=== PATIENT | male | born 1980 | race Caucasian/White ===

== ENCOUNTER 2016-05-31 10:02 | Emergency (ER) | payer MEDICARE, OTHER ==
[2016-05-31 10:04] VITALS: BP 118/69; PULSE 62; RESP 14; TEMP 98; O2SAT 98
--- NOTE | 2016-05-31 10:28 | PD ---
HPI Chief Complaint: Oral / Dental Pain or Problem Time Seen by Provider: 10:20 Travel History International Travel<30 days: No Contact w/Intl Traveler<30days: No Traveled to known affect area: No History of Present Illness HPI 35-year-old male came to the emergency room because he has wires in his jaw after jaw fracture that was put in few weeks ago at [facility]. Patient says it was supposed to come out today but he is homeless and has no means or money to go back to [place] to the oral surgeon to get the wire taken out. He is looking for some help here. No other problems. Vitals were stable. [facility], [facility] Past Medical History Narrative Medical List of his past medical history is reviewed from the nursing note. Social History Tobacco Use: Yes Allergies-Medications (Allergen,Severity, Reaction): Coded Allergies: No Known Allergies (Unverified , 06/01/16) Comments No known drug allergies. Reported Meds & Prescriptions Reported Meds & Active Scripts Active Zofran Odt (Ondansetron Odt) 4 Mg Tab 4 Mg SL Q6HR PRN Narrative Medication Not on any medications. Review of Systems Except as stated in HPI: all other systems reviewed are Neg Physical Exam Narrative GENERAL: Awake, alert, no obvious distress SKIN: Warm and dry. HEAD: Atraumatic. Normocephalic. EYES: Pupils equal and round. No scleral icterus. No injection or drainage. ENT: No nasal bleeding or discharge. Mucous membranes pink and moist. Jaw wired NECK: Trachea midline. No JVD. CARDIOVASCULAR: Regular rate and rhythm. No murmur appreciated. RESPIRATORY: No accessory muscle use. Clear to auscultation. Breath sounds equal bilaterally. GASTROINTESTINAL: Abdomen soft, non-tender, nondistended. Hepatic and splenic margins not palpable. MUSCULOSKELETAL: No obvious deformities. No clubbing. No cyanosis. No edema. NEUROLOGICAL: Awake and alert. No obvious cranial nerve deficits. Motor grossly within normal limits. Normal speech. PSYCHIATRIC: Appropriate mood and affect; insight and judgment normal. Data Data Last Documented VS Vital Signs Date Time Temp Pulse Resp B/P Pulse Ox O2 Delivery O2 Flow Rate FiO2 05/31/16 10:04 98.0 62 14 118/69 98 MDM Medical Decision Making Medical Screen Exam Complete: Yes Emergency Medical Condition: Yes Medical Record Reviewed: Yes Differential Diagnosis Status post mandibular fracture, generalized. Narrative Course 10:37 AM I discussed the case with Dr. Jose who is on-call for oral surgery. He would see the patient in his office today at 1:30 PM. I've given the instruction to the patient and he is getting a map drawn to the office address. He will be discharged home. He has been given instructions to stay nothing by mouth to the procedure was done. Procedures EKG Prior to Arrival: No Diagnosis Primary Impression: History of mandibular surgery Additional Impression: jaw wired Referrals: Irving Jose DDS Additional Instructions: Please follow-up with Dr. Jose's office was address has been given to you at 1:30 PM today. Keep the appointment. He was expecting her in his office at 1:30 sharp. He will do the procedure and take the wire out. Med/Other Pt SpecificInfo: No Change to Meds Disposition: 01 DISCHARGE HOME Condition: Stable Terence Varma MD May 31, 2016 10:28
[2016-06-01] MEDS ORDERED: ZOFR4TAB3 SL (06:15)
== END 2016-05-31 11:29 | disposition home or self-care (01) ==
LOC: NEPE 10:02
DX: Z98.890 Other specified postprocedural states (principal); Z96.698 Presence of other orthopedic joint implants; Z72.0 Tobacco use; Z59.0 Homelessness
CPT/HCPCS: 99283

== ENCOUNTER 2016-06-01 04:48 | Emergency (ER) | payer MEDICARE, OTHER ==
[~2016-06-01] VITALS: Ht 172.7 cm; Wt 75.0 kg
[2016-06-01 04:49] VITALS: BP 135/72; PULSE 87; RESP 16; TEMP 97.8; O2SAT 95
[2016-06-01] MEDS ORDERED: SODIUM CHLOR 0.9% 1000 ML INJ 1,000 ML IV ONE (05:00)
[2016-06-01] MEDS ORDERED: ONDANSETRON HCL 4 MG/2 ML VIAL IV PUSH ONE (05:00)
--- NOTE | 2016-06-01 05:04 | PD ---
HPI Chief Complaint: Medical Clearance Time Seen by Provider: 04:55 Travel History International Travel<30 days: No Contact w/Intl Traveler<30days: No Traveled to known affect area: No History of Present Illness HPI The patient is a 35-year-old male who presents emergency department for nausea. The patient states he had a wire removed from his jaw yesterday, ate chicken tenders and fries yesterday. The patient then had alcohol to drink last night and now presents with nausea. The patient thinks he wiped he nauseated after drinking alcohol and eating, states he is on a liquid diet secondary to the general surgery, prior to yesterday. He denies any abdominal pain, vomiting, or diarrhea. He denies any history of abdominal surgeries. Symptoms are mild to moderate, possibly exacerbated after eating food, and there are no current alleviating factors. [facility] Past Medical History Medical History: Denies Significant Hx Diminished Hearing: No Immunizations Current: Yes Past Surgical History Oral Surgery: Yes (fx jaw) Social History Alcohol Use: Yes Tobacco Use: Yes (/2 ppd) Substance Use: No Allergies-Medications (Allergen,Severity, Reaction): Coded Allergies: No Known Allergies (Unverified , 06/01/16) Reported Meds & Prescriptions Reported Meds & Active Scripts Active No Active Prescriptions or Reported Medications Review of Systems Except as stated in HPI: all other systems reviewed are Neg General / Constitutional: No: Fever Cardiovascular: No: Chest Pain or Discomfort Respiratory: No: Shortness of Breath Gastrointestinal: Positive: Nausea, No: Vomiting, Diarrhea, Abdominal Pain Musculoskeletal: No: Weakness Physical Exam Narrative GENERAL: Awake, alert, pleasant 35 year male who appears his stated age and is in no acute respiratory distress. SKIN: Warm and dry. HEAD: Atraumatic. Normocephalic. EYES: The left pupil is 4 mm in the right pupils 2 mm, patient has a history of anisocoria. Both are reactive to light. ENT: No nasal bleeding or discharge. Mucous membranes pink and moist. Breath smells of alcohol. NECK: Trachea midline. No JVD. CARDIOVASCULAR: Regular rate and rhythm. No murmur appreciated. RESPIRATORY: No accessory muscle use. Clear to auscultation. Breath sounds equal bilaterally. GASTROINTESTINAL: Abdomen soft, non-tender, nondistended. No rebound tenderness. MUSCULOSKELETAL: No obvious deformities. No clubbing. No cyanosis. No edema. NEUROLOGICAL: Awake and alert. No obvious cranial nerve deficits. Motor grossly within normal limits. Normal speech. PSYCHIATRIC: Appropriate mood and affect; insight and judgment normal. Data Data Last Documented VS Vital Signs Date Time Temp Pulse Resp B/P Pulse Ox O2 Delivery O2 Flow Rate FiO2 06/01/16 04:49 97.8 87 16 135/72 95 Room Air Orders Complete Blood Count With Diff (06/01/16 04:58) Comprehensive Metabolic Panel (06/01/16 04:58) Lipase (06/01/16 04:58) Ondansetron Inj (Zofran Inj) (06/01/16 05:00) Sodium Chlor 0.9% 1000 Ml Inj (Ns 1000 M (06/01/16 05:00) Alcohol (Ethanol) (06/01/16 04:58) Labs Laboratory Tests Test 06/01/16 05:04 White Blood Count 7.5 TH/MM3 Red Blood Count 5.22 MIL/MM3 Hemoglobin 16.2 GM/DL Hematocrit 47.7 % Mean Corpuscular Volume 91.5 FL Mean Corpuscular Hemoglobin 31.1 PG Mean Corpuscular Hemoglobin 34.0 % Concent Red Cell Distribution Width 15.0 % Platelet Count 299 TH/MM3 Mean Platelet Volume 7.2 FL Neutrophils (%) (Auto) 54.5 % Lymphocytes (%) (Auto) 30.5 % Monocytes (%) (Auto) 11.5 % Eosinophils (%) (Auto) 3.0 % Basophils (%) (Auto) 0.5 % Neutrophils # (Auto) 4.1 TH/MM3 Lymphocytes # (Auto) 2.3 TH/MM3 Monocytes # (Auto) 0.9 TH/MM3 Eosinophils # (Auto) 0.2 TH/MM3 Basophils # (Auto) 0.0 TH/MM3 CBC Comment DIFF FINAL Differential Comment Sodium Level 142 MEQ/L Potassium Level 4.2 MEQ/L Chloride Level 106 MEQ/L Carbon Dioxide Level 30.2 MEQ/L Anion Gap 6 MEQ/L Blood Urea Nitrogen 15 MG/DL Creatinine 0.80 MG/DL Estimat Glomerular Filtration 109 ML/MIN Rate Random Glucose 88 MG/DL Calcium Level 8.8 MG/DL Total Bilirubin 0.4 MG/DL Aspartate Amino Transf 65 U/L (AST/SGOT) Alanine Aminotransferase 125 U/L (ALT/SGPT) Alkaline Phosphatase 81 U/L Total Protein 7.6 GM/DL Albumin 3.9 GM/DL Lipase 323 U/L Ethyl Alcohol Level 66 MG/DL [facility] Medical Decision Making Medical Screen Exam Complete: Yes Emergency Medical Condition: Yes Medical Record Reviewed: Yes Interpretation(s) Laboratory Tests Test 06/01/16 05:04 White Blood Count 7.5 TH/MM3 Red Blood Count 5.22 MIL/MM3 Hemoglobin 16.2 GM/DL Hematocrit 47.7 % Mean Corpuscular Volume 91.5 FL Mean Corpuscular Hemoglobin 31.1 PG Mean Corpuscular Hemoglobin 34.0 % Concent Red Cell Distribution Width 15.0 % Platelet Count 299 TH/MM3 Mean Platelet Volume 7.2 FL Neutrophils (%) (Auto) 54.5 % Lymphocytes (%) (Auto) 30.5 % Monocytes (%) (Auto) 11.5 % Eosinophils (%) (Auto) 3.0 % Basophils (%) (Auto) 0.5 % Neutrophils # (Auto) 4.1 TH/MM3 Lymphocytes # (Auto) 2.3 TH/MM3 Monocytes # (Auto) 0.9 TH/MM3 Eosinophils # (Auto) 0.2 TH/MM3 Basophils # (Auto) 0.0 TH/MM3 CBC Comment DIFF FINAL Differential Comment Sodium Level 142 MEQ/L Potassium Level 4.2 MEQ/L Chloride Level 106 MEQ/L Carbon Dioxide Level 30.2 MEQ/L Anion Gap 6 MEQ/L Blood Urea Nitrogen 15 MG/DL Creatinine 0.80 MG/DL Estimat Glomerular Filtration 109 ML/MIN Rate Random Glucose 88 MG/DL Calcium Level 8.8 MG/DL Total Bilirubin 0.4 MG/DL Aspartate Amino Transf 65 U/L (AST/SGOT) Alanine Aminotransferase 125 U/L (ALT/SGPT) Alkaline Phosphatase 81 U/L Total Protein 7.6 GM/DL Albumin 3.9 GM/DL Lipase 323 U/L Ethyl Alcohol Level 66 MG/DL Differential Diagnosis Differential diagnosis includes gastritis, pancreatitis, biliary colic, cholecystitis, enteritis, GERD. Narrative Course IV was established, labs are drawn and sent, and the patient was placed on cardiac telemetry monitoring and continuous pulse oximetry monitoring. The patient was administered Zofran and normal saline bolus. The patient's labs are unremarkable. The patient is reevaluated at 613 8 AM, patient was sleeping comfortably. Patient will be discharged home on Zofran. Diagnosis Primary Impression: Gastritis Qualified Code: K29.00 - Acute gastritis, presence of bleeding unspecified, unspecified gastritis type Patient Instructions: General Instructions Additional Instructions: Zofran as directed. Follow-up with her primary physician. Decrease alcohol use. Return if symptoms worsen or progress. Med/Other Pt SpecificInfo: Prescription(s) given Scripts Ondansetron Odt (Zofran Odt)4 Mg Tab4 Mg SL Q6HR PRN (Nausea/Vomiting) #7 TAB Ref 0 Prov:Ze Ruffin MD 06/01/16 Disposition: 01 DISCHARGE HOME Condition: Stable Ze Ruffin MD Jun 01, 2016 05:04
[2016-06-01 05:40] LABS: AUTOMATED NEUTROPHIL # 4.1 TH/MM3 (1.8-7.7); BASOPHIL % 0.5 % (0.0-2.0); EOSINOPHIL # 0.2 TH/MM3 (0-0.4); HEMATOCRIT 47.7 % (39.0-51.0); HEMO FLAGS DIFF FINAL; LYMPH % 30.5 % (9.0-44.0); LYMPHOCYTE # 2.3 TH/MM3 (1.0-4.8); MEAN CELL VOLUME 91.5 FL (80.0-100.0); MEAN CORPUSCULAR HEMOGLOBIN 31.1 PG (27.0-34.0); MONO % 11.5 % (0.0-8.0); NEUT % 54.5 % (16.0-70.0); PLATELET COUNT 299 TH/MM3 (150-450); RED BLOOD COUNT 5.22 MIL/MM3 (4.50-5.90); WHITE BLOOD COUNT 7.5 TH/MM3 (4.0-11.0)
[2016-06-01 06:03] LABS: ALKALINE PHOSPHATASE 81 U/L (45-117); TOTAL BILIRUBIN ADULT 0.4 MG/DL (0.2-1.0)
[2016-06-01 06:08] LABS: ALT (GPT) 125 U/L (12-78); ANION GAP 6 MEQ/L (5-15); AST (GOT) 65 U/L (15-37); BICARBONATE 30.2 MEQ/L (21.0-32.0); BLOOD UREA NITROGEN 15 MG/DL (7-18); CHLORIDE 106 MEQ/L (98-107); GLOMERULAR FILTRATION RATE 109 ML/MIN (>89); POTASSIUM 4.2 MEQ/L (3.5-5.1); SODIUM (NA) 142 MEQ/L (136-145)
[2016-06-01 06:15] VITALS: BP 112/82; PULSE 80; RESP 16; O2SAT 97
[2016-06-01] MEDS ORDERED: ZOFR4TAB3 SL (06:15)
== END 2016-06-01 06:33 | disposition home or self-care (01) ==
LOC: NEPC 04:48
DX: K29.70 Gastritis, unspecified, without bleeding (principal); F17.210 Nicotine dependence, cigarettes, uncomplicated
CPT/HCPCS: 80053; 80320; 83690; 85025; 96361; 96374; 99283; J2405; J7030

== ENCOUNTER 2016-06-01 07:21 | Emergency (ER) | payer MEDICARE, OTHER ==
[~2016-06-01] VITALS: Ht 167.6 cm; Wt 75.0 kg
[~2016-06-01 07:21] MED LIST: ZOFR4TAB3 SL
[2016-06-01 07:23] VITALS: BP 135/64; PULSE 74; RESP 15; TEMP 98; O2SAT 99
--- NOTE | 2016-06-01 10:20 | PD ---
HPI Chief Complaint: Psychiatric Symptoms Time Seen by Provider: 10:16 Travel History International Travel<30 days: No Contact w/Intl Traveler<30days: No Traveled to known affect area: No History of Present Illness HPI 35-year-old male presents to the emergency Department voluntarily for psychiatric evaluation. Patient was just discharged at 5:00 this morning for gastritis. He states after he was discharged, use her with suicidal thoughts. He states he has thoughts of cutting his wrists. He denies any harm to himself. Patient states he just moved from [place] 2 days ago. He states he is living on the streets. He states that he tries not to drink alcohol every day, but does drink often. He admits to marijuana use, but denies any IV drug use. He states he was given a prescription for Lexapro in the past, but never filled it. Patient denies any medical complaints at this time. PFSH Past Medical History Diminished Hearing: No Immunizations Current: Yes Past Surgical History Oral Surgery: Yes (fx jaw) Social History Alcohol Use: Yes Tobacco Use: Yes (1/2 ppd) Substance Use: No Allergies-Medications (Allergen,Severity, Reaction): Coded Allergies: No Known Allergies (Unverified , 06/01/16) Reported Meds & Prescriptions Reported Meds & Active Scripts Active Zofran Odt (Ondansetron Odt) 4 Mg Tab 4 Mg SL Q6HR PRN Review of Systems Except as stated in HPI: all other systems reviewed are Neg Physical Exam Narrative GENERAL: Well-developed well-nourished male patient, ambulatory. Afebrile. SKIN: Warm and dry. HEAD: Normocephalic. Atraumatic. EYES: No scleral icterus. No injection or drainage. NECK: Supple, trachea midline. No JVD or lymphadenopathy. CARDIOVASCULAR: Regular rate and rhythm without murmurs, gallops, or rubs. RESPIRATORY: Breath sounds equal bilaterally. No accessory muscle use. Lungs sounds clear to auscultation. GASTROINTESTINAL: Abdomen soft, non-tender, nondistended. MUSCULOSKELETAL: No cyanosis, or edema. PSYCHIATRIC: No delusional thought processes. No hallucinations. Data Data Last Documented VS Vital Signs Date Time Temp Pulse Resp B/P Pulse Ox O2 Delivery O2 Flow Rate FiO2 06/01/16 07:23 98.0 74 15 135/64 99 Orders Diet Regular Basic (1/20/17 Breakfast) Diet Regular Basic (06/01/16 Lunch) Drug Screen, Random Urine (06/01/16 09:46) Psych Screen (06/01/16 10:08) MDM Medical Decision Making Medical Screen Exam Complete: Yes Emergency Medical Condition: Yes Medical Record Reviewed: Yes Differential Diagnosis Depression versus anxiety versus bipolar disorder versus schizophrenia versus psychosis versus substance abuse Narrative Course 35 year old male presents to the emergency Department voluntarily for psychiatric evaluation. He denies any medical complaints at this time. I reviewed the labs that were done at 5:00 this morning. CBC was unremarkable. CMP showed elevated liver enzymes of AST of 65, ALT 125. Alcohol level was 66. Urine drug screen is ordered and pending. Patient is medical cleared for psychiatric screening and disposition. Mental health screening discussed with the patient. Psychiatric screen ordered. Diagnosis Primary Impression: Depression Qualified Code: F32.9 - Depression, unspecified depression type Additional Instructions: Patient is medically cleared for psychiatric screening and disposition. Condition: Stable Gayla Kessler Jun 01, 2016 10:20
[2016-06-01 11:23] LABS: AMPHETAMINE, URINE NEG (NEG); BARBITURATES, URINE NEG (NEG); COCAINE, URINE NEG (NEG)
[2016-06-01 18:10] VITALS: BP 124/68; PULSE 61; RESP 18
[2016-06-01 23:28] VITALS: BP 113/62; PULSE 53; RESP 18; O2SAT 97
[2016-06-02 02:26] VITALS: BP 128/77; PULSE 53; RESP 18; TEMP 97.3; O2SAT 97
[2016-06-02 06:25] VITALS: BP 123/60; PULSE 57; RESP 18; TEMP 96; O2SAT 96
[2016-06-02 10:14] VITALS: BP 123/60; PULSE 57; RESP 18; O2SAT 96
--- NOTE | 2016-06-02 10:18 | PD ---
History of Present Illness Chief Complaint: Psychiatric Symptoms Time Seen by Provider: 09:45 Travel History International Travel<30 Days: No Contact w/Intl Traveler<30days: No Known affected area: No Legal Status Legal Status: Voluntary History of Present Illness: History of Present Illness 35-year-old male with a self reported history of bipolar disorder, depression, anxiety, ADHD who presents to the emergency Department voluntarily for psychiatric evaluation. As per the EMR patient was just discharged at 5:00 this morning for gastritis and at that time he presented no psychiatric complaints. He states after he was discharged he began to experience suicidal thoughts. He states he has thoughts of cutting his wrists but he has not made any suicidal gesture or any attempts. Patient was monitored in J pod and he presented no behavioral concerns and no suicidality. Slept well. As per guide tour he denied any previous psychiatric history and denied any previous psychiatric hospitalizations. He was vague regarding his symptoms. As per EMR he has not had previous contact with [facility] psychiatry. Current toxicology is positive for cannabinoids. Patient is asleep. Awakens easily. Speech is clear and logical, goal directed. Does not appear internally preoccupied and does not report any hallucinations, delusions or paranoia. He does not report any symptoms of depression or anxiety .He states " I just want to get my life back on track. I have been living on the streets for one and half year and I just want to do the right thing". He goes on to ask what services are available " on the other side of the hospital, the psych unit. " like a aids social worker and groups". He is unable to provide information regarding previous medications . " I don't know what meds" . I was prescribed lexapro 2 months ago in [place]. He is unable to tell me who prescribed it to him. When asked what hospital he has been he states " I don't know what hospitals". He is also unable to say when he last took psychiatric medications , if any, in a consistent manner. He then states " it wasn't 2 mos ago it was 2 days ago I was in [place]". Patient also states that he has had had thoughts in the past several weeks of cutting his wrists but has not done so . Mood does not appear to be significantly depressed. PFSH Past Medical History Diminished Hearing: No Immunizations Current: Yes Past Surgical History Oral Surgery: Yes (fx jaw) Psychiatric History Psychiatric History Hx Psychiatric Treatment: Denied History of Inpatient Treatment: No Guns or firearms in home: No Social History completed 11 grade. states is on disability x 12 years. Homeless. From [place]. Hx Alcohol Use: Yes Hx Tobacco Use: Yes (05/14 ppd) Hx Substance Use: Yes Substance Use Type: Alcohol Other Substances Used: VAGUE STATED I DO THINGS AT TIMES Hx of Substance Use Treatment: No Family Psychiatric History None reported Allergies-Medications (Allergen,Severity, Reaction): Coded Allergies: No Known Allergies (Unverified , 06/01/16) Reported Meds & Prescriptions Reported Meds & Active Scripts Active Zofran Odt (Ondansetron Odt) 4 Mg Tab 4 Mg SL Q6HR PRN Review of Systems Constitutional: DENIES: Diaphoretic episodes, Fatigue, Fever, Weight gain, Weight loss, Chills, Dizziness, Change in appetite, Night Sweats Endocrine: DENIES: Heat/cold intolerance, Polydipsia, Polyuria, Polyphagia Eyes: DENIES: Blurred vision, Diplopia, Eye inflammation, Eye pain, Vision loss , Photosensitivity, Double Vision Respiratory: DENIES: Apneas, Cough, Snoring, Wheezing, Hemoptysis, Sputum production, Shortness of breath Cardiovascular: DENIES: Chest pain, Palpitations, Syncope, Dyspnea on Exertion , PND, Lower Extremity Edema, Orthopnea, Claudication Gastrointestinal: DENIES: Abdominal pain, Black stools, Bloody stools, Constipation, Diarrhea, Nausea, Vomiting, Difficulty Swallowing, Anorexia Genitourinary: DENIES: Sexual dysfunction, Urinary frequency, Urinary incontinence, Urgency, Hematuria, Dysuria, Nocturia, Penile Discharge, Testicular Pain, Testicular Swelling Musculoskeletal: DENIES: Joint pain, Muscle aches, Stiffness, Joint Swelling, Back pain, Neck pain Integumentary: DENIES: Abnormal pigmentation, Nail changes, Pruritus, Rash Immunologic/allergic: DENIES: Eczema, Urticaria Exam Alert: Yes [place]: Person (ox4) Mood: Calm Affect: Euthymic Speech: Clear, Logical Eye Contact: Indirect Memory Intact: Comment (vague regarding hx. Appears to be putting forth little effort) Delusions: No Suicidal: Intent (Negative), Ideation (Negative.) Homicidal: Ideation (neagtive) Insight/Judgement Poor. Poor. MDM Medical Decision Making Medical Record Reviewed: Yes Assessment/Plan 35 year old male who presents on a voluntary basis after he was evaluated and discharged for gastric complaints. He then returned to the hospital reporting suicidal ideation. The patient has been vague and has presented conflicting information regarding past treatment or medications. He was monitored here in J pod with no behavioral concerns and no suicidality until a discussion ensues regarding discharge from Ed. It is highly suspected that he is malingering his symptoms in order to obtain intermediate as well as I suspect an axis 2 dx. At this time the patient is not determined to be an imminent risk to self due to psychiatric issues or concerns. There is always the possibility that he may in fact " up the ante" in order to obtain intermediate. At this time he is not deemed a risk to self based on observations and clinical interview. He is provided with information regarding [facility] for follow up and other social media project manager. Orders Diet Regular Basic (06/01/16 Dinner) Diet Regular Basic (06/02/16 Breakfast) Results Vital Signs Date Time Temp Pulse Resp B/P Pulse Ox O2 Delivery O2 Flow Rate FiO2 06/02/16 10:14 57 18 123/60 96 Room Air 06/02/16 06:25 96.0 57 18 123/60 96 Room Air 06/02/16 06:16 52 18 06/02/16 02:26 97.3 53 18 128/77 97 Room Air 06/01/16 23:28 53 18 113/62 97 06/01/16 18:10 61 18 124/68 Room Air Diagnosis Primary Impression: Malingering Additional Impression: Depression Psychiatrically Cleared: Yes Additional Instructions: Patient is medically cleared for psychiatric screening and disposition. Disposition: 01 DISCHARGE HOME Condition: Stable Problem Qualifiers Additional Impression: Depression Qualified Code: F32.9 - Depression, unspecified depression type Lety Hyde Jun 02, 2016 10:18
== END 2016-06-02 10:58 | disposition home or self-care (01) ==
LOC: NEPJ 07:21
DX: Z76.5 Malingerer [conscious simulation] (principal); F32.9 Major depressive disorder, single episode, unspecified; F17.210 Nicotine dependence, cigarettes, uncomplicated
CPT/HCPCS: 80307; 99284

== ENCOUNTER 2016-06-02 19:09 | Emergency (ER) | payer MEDICARE, OTHER ==
[~2016-06-02] VITALS: Ht 167.6 cm; Wt 73.0 kg
[2016-06-02 19:11] VITALS: BP 109/55; PULSE 112; RESP 16; TEMP 98.8; O2SAT 96
== END 2016-06-02 19:45 | disposition left against medical advice (07) ==
LOC: NED 19:09
DX: R68.89 Other general symptoms and signs (principal)
CPT/HCPCS: 99281

== ENCOUNTER 2016-06-04 18:34 | Inpatient (IN) | payer MEDICARE, OTHER ==
[2016-06-04 19:45] VITALS: BP 131/71; PULSE 63; RESP 17; TEMP 97; O2SAT 91
[2016-06-04] MEDS ORDERED: diphenhydrAMINE HCL 50 MG CAP - HS PRN PO (20:15)
[2016-06-04] MEDS ORDERED: BENZTROPINE MESYLATE 2 MG/2 ML VIAL IM PRN (20:15)
[2016-06-04] MEDS ORDERED: ALUMINUM/MAGNESIUM/SIMETH 30 ML CUP PO PRN (20:15)
[2016-06-04] MEDS ORDERED: BENZTROPINE MESYLATE 1 MG TAB PO PRN (20:15)
[2016-06-04] MEDS ORDERED: MAGNESIUM HYDROXIDE SUSP 30 ML CUP PO PRN (20:15)
[2016-06-04] MEDS ORDERED: hydrOXYzine HCL 50 MG TAB PO PRN (20:15)
[2016-06-04] MEDS ORDERED: ACETAMINOPHEN 325 MG TAB PO PRN (20:15)
[2016-06-05 06:24] VITALS: BP 124/60; PULSE 60; RESP 20; TEMP 98.1
[2016-06-05 08:21] LABS: AUTOMATED NEUTROPHIL # 2.8 TH/MM3 (1.8-7.7); BASOPHIL % 0.6 % (0.0-2.0); EOSINOPHIL # 0.2 TH/MM3 (0-0.4); EOSINOPHIL % 3.1 % (0.0-4.0); HEMATOCRIT 44.7 % (39.0-51.0); HEMO FLAGS DIFF FINAL; LYMPH % 31.7 % (9.0-44.0); LYMPHOCYTE # 1.7 TH/MM3 (1.0-4.8); MEAN CORPUSCULAR HEMOGLOBIN 30.6 PG (27.0-34.0); MEAN CORPUSCULAR HGB CONC 33.6 % (32.0-36.0); MONO % 13.6 % (0.0-8.0); PLATELET COUNT 220 TH/MM3 (150-450); RED BLOOD COUNT 4.91 MIL/MM3 (4.50-5.90); RED CELL DISTRIBUTION WIDTH 14.9 % (11.6-17.2); WHITE BLOOD COUNT 5.5 TH/MM3 (4.0-11.0)
[2016-06-05 08:57] LABS: ALKALINE PHOSPHATASE 72 U/L (45-117); ALT (GPT) 100 U/L (12-78); ANION GAP 6 MEQ/L (5-15); AST (GOT) 41 U/L (15-37); BICARBONATE 28.6 MEQ/L (21.0-32.0); BLOOD UREA NITROGEN 15 MG/DL (7-18); CHLORIDE 105 MEQ/L (98-107); GLOMERULAR FILTRATION RATE 97 ML/MIN (>89); HDL CHOLESTEROL 60.9 MG/DL (40.0-60.0); LDL CHOLESTEROL 53 MG/DL (0-99); POTASSIUM 4.2 MEQ/L (3.5-5.1); SODIUM (NA) 140 MEQ/L (136-145); TOTAL BILIRUBIN ADULT 0.6 MG/DL (0.2-1.0)
[2016-06-05] MEDS: NICOTINE 21 MG/24 HR PATCH T-DERMAL SCH (09:00)
[2016-06-05] MEDS ORDERED: LORazepam 2 MG TAB PO PRN (12:45)
[2016-06-05] MEDS ORDERED: LORazepam 2 MG/ML VIAL IM PRN ×4 (12:45)
[2016-06-05] MEDS ORDERED: FLUMAZENIL 0.5 MG/5 ML VIAL IV PUSH PRN (12:45)
[2016-06-05] MEDS ORDERED: LORazepam 1 MG TAB PO PRN (12:45)
--- NOTE | 2016-06-05 12:55 | MH ---
cc: MATTY TATE MD DATE OF ADMISSION: 06/04/2016 ADMITTING DIAGNOSIS 1. 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 2. Suspect significant component of symptom exaggeration or malingering for skilled nursing. LEGAL STATUS The patient is presently capacitated to consent for admission and also for psychotropic medications. HISTORY OF PRESENT ILLNESS Mr. Carlos is a 35-year-old male with a reported history of bipolar disorder versus schizoaffective disorder who presents in transfer from [facility] under a Cope Act. The patient apparently presented to the outside hospital with suicidal ideation of about two weeks. Documentation from outside hospital reviewed. Reviewing our own electronic medical record I see that the patient was seen in consultation in our ED by nurse practitioner Barrett, and suspicion at that time was that he was malingering for skilled nursing possibly with co-morbid [place] II diagnosis. Patient seen and examined. Chart reviewed. Case discussed with nursing staff. On my examination today, the patient does indeed present as somewhat manipulative and is medication seeking, chiefly for Ativan. He says that he has been feeling depressed for about the last two years because he keeps slipping into his same old patterns of substance use and homelessness. He endorses associated sleep disturbance and helpless feelings. He says that he came into the outside hospital because he felt like he was not getting any better. He does not describe any hypomanic or manic symptoms now, nor can I elicit any in the past. He denies any audiovisual hallucinations, nor can I elicit any delusional beliefs including but not limited to paranoia, ideas of reference, thought insertion or withdrawal or grandiosity. The patient does describe some vague suicidal ideation without specific plan or intent. No reported urge to hurt himself on the inpatient psychiatric unit. The remainder of the psychiatric ROS is negative. PAST PSYCHIATRIC HISTORY The patient reports prior diagnoses of bipolar disorder and schizophrenia and says that he has had these diagnoses for 12 years. As noted above, however, there is no clear history of kasie rod hypomanic or manic episode and when I ask how he came to acquire the psychotic disorder diagnosis he says that it was because he has been "talking to myself." He is not presently under the care of a psychiatrist but was apparently admitted about four weeks ago to an outside hospital after cutting himself in a reported suicide attempt. He says that he was started on Lexapro at that time which worked fairly well but did not manage associated anxiety adequately and he quit taking it. He says that he has been tried on the atypical antipsychotics in the past and suffered unacceptable weight gain, even on the agents that are relatively weight neutral. He has also been on lithium and Depakote in the past but says that he could not tolerate these medications either. He is somewhat medication seeking for Ativan as I said. FAMILY HISTORY The patient denies any family history of serious mental illness, substance use disorder or suicide. CHEMICAL DEPENDENCY HISTORY The patient reports a steady use of tobacco. He says that his cocaine and cannabis use is only sporadic and says that he was sober for two years prior to relapsing heavily within the last year or so. SOCIAL HISTORY The patient is presently homeless and says that he has been so for the last two years. He is high school educated. He is on disability for mental illness. He is single and has no children. He denies any or legal history. No reported access to guns or firearms. PAST MEDICAL HISTORY No reported significant medical history. MEDICATIONS The patient reportedly takes no medications on an outpatient basis. ALLERGIES No known allergies. PHYSICAL EXAMINATION The physical examination was completed at the outside hospital and the patient was medically cleared. On my examination today, the patient appears to be in no acute physical distress. He is fairly well-nourished and well-developed. No motoric abnormality is noted. Vital signs:: Temperature is 98.1 Fahrenheit, pulse is 60 per minute, respirations 20 per minute, blood pressure 124/60 and oxygen saturation is 91% on room air, although I suspect this is spurious because he was previously satting at 96% and does not appear to be in any respiratory distress. Laboratory is reviewed. Toxicology at the outside hospital was positive for cocaine and cannabinoids. CBC within our system is within normal limits. CMP is significant for mild transaminitis, although it is worth noting this is improved from when he was seen in the ED on the . MENTAL STATUS EXAMINATION The patient is in a hospital gown. He is well-groomed. He is awake, alert and oriented x3. No evidence of delirium. No abnormal motor movements noted. No signs of withdrawal noted. Speech is within normal limits for rate, tone and volume. Language and fund of knowledge seem average for age. Mood is somewhat dysphoric but not really depressed and affect is blunted. Thought process linear. No loosening of associations. No evident delusions. Denies audiovisual hallucinations. Endorses vague suicidal ideation without specific plan or intent. No reported urge to hurt himself on the inpatient psychiatric unit. No homicidal ideation. Insight and judgment are fair. ASSESSMENT AND PLAN This is a 35-year-old male with psychiatric history as detailed above who presents in transfer from outside hospital under a Cope Act. On my examination today, the patient reports chiefly chronic depressive symptoms, few in number, and only recently worsened without clear trigger. I do suspect that substance use is contributing, and the patient is likely experiencing a substance-induced mood disorder. There may also be a significant secondary gain and [place] II overlay as noted in the nurse practitioner's consultation from earlier in the month. I will admit the patient to the inpatient psychiatric unit for observation and stabilization. Admit inpatient. Voluntary status. I will resume Lexapro for the patient's mood at a dose of 10 mg daily. I will also initiate gabapentin 300 mg three times daily for anxiety. Atarax as needed for anxiety. Cogentin as needed for EPS. Benadryl as needed for sleep. I will start the patient on a CIWA scale with Ativan for the management of any withdrawal as I do see that he was using alcohol during his ED visit a few days ago, although he does not describe any current alcohol use to me, nor does he have any stigmata of withdrawal. Vitals every shift. Counselor to see. Disposition planning. Estimated length of stay: 3-5 days. Matty Tate DC/HORACIO /12:26 PM /12:41 PM ROXANN
[2016-06-05] MEDS: GABAPENTIN 300 MG CAP PO SCH ×2 (13:49→17:32)
[2016-06-05 17:43] LABS: HEMOGLOBIN A1a 1.2 %; HEMOGLOBIN A1b 0.8 %; HEMOGLOBIN Ao 85.6 %; HEMOGLOBIN F 1.2 %; HEMOGLOBIN LA1C 1.9 %; HEMOGLOBIN P3 3.4 %
[2016-06-05 18:00] VITALS: BP 142/76; PULSE 62; RESP 18; TEMP 98.7
[2016-06-05] MEDS: REMOVE OLD NICOTINE PATCH T-DERMAL SCH (21:00)
[2016-06-06 06:05] VITALS: BP 115/72; PULSE 53; RESP 16; TEMP 97.5; O2SAT 96
[2016-06-06] MEDS: ESCITALOPRAM OXALATE 10 MG TAB PO SCH (08:31)
[2016-06-06] MEDS: GABAPENTIN 300 MG CAP PO SCH ×3 (08:31→17:48)
[2016-06-06] MEDS: NICOTINE 21 MG/24 HR PATCH T-DERMAL SCH ×2 (09:00→09:10)
--- NOTE | 2016-06-06 11:28 | HHI.PYPN ---
Subjective Remarks Patient seen and examined. Chart reviewed. Case discussed with nursing staff who reports patient defecated in the shower for unclear reasons. When I ask the patient about this today on examination he says that he was in the shower in the water hit his abdomen and he coughed or perhaps sneezed and defecated as a result. He denies any ongoing issues with fecal incontinence. Mood is improving somewhat. No SI or HI voiced. Denies side effects from medications. Review of Systems Other Besides above, no physical complaints today Objective Alert: Yes [place]: Person (O x 3) Mood: Calm Affect: Blunted Memory Intact: Comment (Intact on clinical exam) Hallucinations: Other (No AVH) Delusions: No Delusion Type: Other (No delusions) Suicidal: Ideation (No SI voiced) Homicidal: Ideation (No HI voiced) Insight/Judgement Fair Remarks No abnormal motor movements noted. TP linear. Labs Labs reviewed. Vitals/IOs Vital Signs Date Time Temp Pulse Resp B/P Pulse Ox O2 Delivery O2 Flow Rate FiO2 06/06/16 06:05 97.5 53 16 115/72 96 Assessment & Plan Problem List: (1) Other psychoactive substance dependence with psychoactive substance-induced mood disorder ICD Code: F19.24 Assessment & Plan Continue Lexapro and gabapentin as ordered. Continue CIWA, although pt has required no Ativan and has no sign of withdrawal. Monitor for any ongoing incontinence. Continue other medications and care as ordered. Justification for Cont. Inpt. Monitoring for safety. Discharge Planning Counselor has provided patient with a list of sober living facilities, and I have encouraged the patient to explore these options. Request HC Surrog/Guard Advoc?: No Kye Tate MD Jun 06, 2016 11:28
[2016-06-06 18:48] VITALS: BP 116/57; PULSE 57; RESP 16; TEMP 98; O2SAT 96
[2016-06-06] MEDS: REMOVE OLD NICOTINE PATCH T-DERMAL SCH (21:00)
[2016-06-07 05:00] VITALS: BP 105/54; PULSE 57; RESP 18; TEMP 97.7; O2SAT 95
[2016-06-07] MEDS: ESCITALOPRAM OXALATE 10 MG TAB PO SCH (09:00)
[2016-06-07] MEDS: GABAPENTIN 300 MG CAP PO SCH ×2 (09:00→12:28)
[2016-06-07] MEDS ORDERED: NEUR300C PO (11:16)
[2016-06-07] MEDS ORDERED: ESCI10TA PO (11:16)
--- NOTE | 2016-06-07 11:16 | HHI.DS ---
Psychiatry Discharge Summary Inpatient Psychiatric care?: Yes Advance Directive: No Reason Not Provided: REFUSED Mental Health AdvanceDirective: No Health Care Proxy: No Admission Admission Date Jun 04, 2016 at 19:58 Admission Diagnosis: (1) Other psychoactive substance dependence with psychoactive substance-induced mood disorder ICD Code: F19.24 Brief History Mr. Carlos is a 35-year-old male with a reported history of bipolar disorder versus schizoaffective disorder who presents in transfer from [facility] under a Cope Act. The patient apparently presented to the outside hospital with suicidal ideation of about two weeks. Documentation from outside hospital reviewed. Reviewing our own electronic medical record I see that the patient was seen in consultation in our ED by nurse practitioner Barrett, and suspicion at that time was that he was malingering for skilled nursing possibly with co-morbid [place] II diagnosis. Patient seen and examined. Chart reviewed. Case discussed with nursing staff. On my examination today, the patient does indeed present as somewhat manipulative and is medication seeking, chiefly for Ativan. He says that he has been feeling depressed for about the last two years because he keeps slipping into his same old patterns of substance use and homelessness. He endorses associated sleep disturbance and helpless feelings. He says that he came into the outside hospital because he felt like he was not getting any better. He does not describe any hypomanic or manic symptoms now, nor can I elicit any in the past. He denies any audiovisual hallucinations, nor can I elicit any delusional beliefs including but not limited to paranoia, ideas of reference, thought insertion or withdrawal or grandiosity. The patient does describe some vague suicidal ideation without specific plan or intent. No reported urge to hurt himself on the inpatient psychiatric unit. The remainder of the psychiatric ROS is negative. Tobacco Use In Past 30 Days: No Tobacco Past 30 Days Alcohol Use: 4 or More Times Per Week Hospital Course Patient was admitted to a locked, inpatient psychiatric unit. Appropriate precautions were in place throughout patient's hospital stay. Patient was seen and examined daily on the unit by psychiatry and also visited by counselor. Medications were adjusted. Patient tolerated medications well without side effects. Patient had improvement in his presenting psychiatric symptomatology during the course of his hospital stay. There was no evidence of any suicidal or violent behavior on the inpatient unit. Patient was medication compliant. There was no evidence of clinically significant withdrawal by CIWA or on exam. On the day of discharge: Patient seen and examined. Chart reviewed. Case discussed with nursing staff. No problematic behaviors noted. On my examination today, the patient requests discharge from the inpatient psychiatric unit. He says that he feels improved from a psychiatric standpoint. Mood is reportedly improved versus admission and he denies any suicidal ideation, intent or plan on direct questioning. He is future oriented. He denies any homicidal ideation. He does not describe any audiovisual hallucinations, and I can elicit no delusional beliefs. He denies side effects from medications. He has no physical complaints today. He says that his plan is to enter into an independent living environment and pursue sober living on an outpatient basis. I golf starter and ranger that the patient does not meet criteria for involuntary psychiatric hospitalization after weighing the acute, chronic, and protective factors. Given that the patient is requesting discharge from the inpatient psychiatric unit today and does not meet criteria for involuntary psychiatric hospitalization, I have no choice but to order his discharge today from the inpatient psychiatric unit. I have offered to retain him for additional observation and possible placement in a sober living, but he has declined. Patient is to be discharged today in stable condition with psychiatric follow-up as arranged by counselor. Patient is also to follow-up with primary care. I have counseled the patient regarding warning signs for need to return to the psychiatric emergency room as part of general safety plan. Results Blood Pressure 105 / 54 Vital Signs Date Time Temp Pulse Resp B/P Pulse Ox O2 Delivery O2 Flow Rate FiO2 06/07/16 05:00 97.7 57 18 105/54 95 Laboratory Tests Test 06/05/16 07:36 Monocytes (%) (Auto) 13.6 % (0.0-8.0) Calcium Level 8.4 MG/DL (8.5-10.1) Aspartate Amino Transf 41 U/L (15-37) (AST/SGOT) Alanine Aminotransferase 100 U/L (12-78) (ALT/SGPT) Albumin 3.3 GM/DL (3.4-5.0) Triglycerides Level 197 MG/DL (42-150) HDL Cholesterol 60.9 MG/DL (40.0-60.0) Laboratory Results Test 06/05/16 07:36 Hemoglobin A1c 5.4 % (4.3-6.0) Triglycerides Level 197 MG/DL (42-150) Cholesterol Level 153 MG/DL (120-200) LDL Cholesterol 53 MG/DL (0-99) HDL Cholesterol 60.9 MG/DL (40.0-60.0) Summary of Procedures None done Imaging None done Pending results at discharge: No Medications # of Antipsychotic meds at D/C: 0 Approp Antipsych med options 1 - Minimum of three failed multiple trials of monotherapy. 2 - Documented plan to taper to monotherapy due to previous use of multiple meds OR cross-taper in progress at D/C. 3 - Documentation of augmentation of Clozapine. 4 - Justification other than those listed in allowable values 1-3, document here : Discharge Discharge Date: Jun 07, 2016 Discharge Diagnosis: (1) Other psychoactive substance dependence with psychoactive substance-induced mood disorder Diagnosis: Principal (Mood disorder improved versus admission) ICD Code: F19.24 GAF on discharge is 60. Mental Status Exam at Disch Patient is casually dressed. He is well groomed. He is awake and alert and oriented 3. No abnormal motor movements noted. No signs of withdrawal noted. Speech is within normal limits for rate, tone and volume. Language and fund of knowledge seem average. Mood is improved versus admission and affect is full and reactive. Thought processes linear. No loosening of associations. No evident delusions. No audiovisual hallucinations. Denies suicidal or homicidal ideation. Insight and judgment are fair. Pt Condition on Discharge: Stable Discharge Disposition: Discharge Home Discharge Instructions Diet Instructions: As Tolerated, No Restrictions Activities you can perform: Weight Bearing as Dimitris Scheduled Appointment: as per counselor's notes New Orders: HEPATIC FUNCTION STONE - 1 Week New Medications: Escitalopram (Escitalopram) 10 Mg Tab 10 MG PO DAILY Mental Health Days 15 Ref 1 TAB Gabapentin (Neurontin) 300 Mg Cap 300 MG PO TID Mental Health Days 15 Ref 1 CAP Discontinued Medications: Ondansetron Odt (Zofran Odt) 4 Mg Tab 4 MG SL Q6HR PRN Nausea/Vomiting #7 Ref 0 TAB Discharge Time <= 30 minutes Discharge/Advance Care Plan Health Problems: (1) Other psychoactive substance dependence with psychoactive substance-induced mood disorder Goals to promote your health * To prevent worsening of your condition and complications * To maintain your health at the optimal level Directions to meet your goals Take your medications as prescribed Follow your dietary instruction Follow activity as directed Keep your appointments as scheduled Take your immunizations and boosters as scheduled If your symptoms worsen call your PCP, if no PCP go to Urgent Care Center or Emergency Room For 03/12 questions related to your inpatient stay or results of tests pending at discharge, please contact Dr. Kye Tate at Smoking is Dangerous to Your Health. Avoid second hand smoking Kye Tate MD Jun 07, 2016 11:16
== END 2016-06-07 15:20 | disposition home or self-care (01) | DRG 897 ==
LOC: H260 19:58
PROVIDERS: ADMIT Psychiatry & Neurology Psychiatry; ATTEND Psychiatry & Neurology Psychiatry
DX: F19.24 Other psychoactive substance dependence with psychoactive substance-induced mood disorder (principal); R45.851 Suicidal ideations; G47.9 Sleep disorder, unspecified; F41.9 Anxiety disorder, unspecified; F12.90 Cannabis use, unspecified, uncomplicated; F14.90 Cocaine use, unspecified, uncomplicated; Z59.0 Homelessness; Z72.0 Tobacco use; Z72.89 Other problems related to lifestyle; Z76.5 Malingerer [conscious simulation]
CPT/HCPCS: 80053; 80061; 83036; 84443; 85025

== ENCOUNTER 2016-06-08 03:58 | Emergency (ER) | payer MEDICARE, OTHER ==
[~2016-06-08 03:58] MED LIST changes: +ESCI10TA PO; +NEUR300C PO; -ZOFR4TAB3 SL
[2016-06-08 04:22] VITALS: BP 124/73; PULSE 89; RESP 18; O2SAT 98
--- NOTE | 2016-06-08 04:27 | PD ---
HPI Chief Complaint: Psychiatric Symptoms Time Seen by Provider: 04:10 Travel History International Travel<30 days: No Contact w/Intl Traveler<30days: No Traveled to known affect area: No History of Present Illness HPI This is a 35-year-old male who presents under a cope act initiated by a physician at [facility]. His cope act reads, "PT is a 35-year- old male with suicidal ideation and plans to cut himself." He was medically cleared at [facility] and then transferred here for psychiatric evaluation. He has no acute complaints at this time. He reports that he is homeless, recently moved to the area from [place] approximately one week ago. This is his sixth visit to this emergency room in the past week. He reports a history of mandibular surgery, depression. He admits to marijuana use. Denies any other drug use. Denies any alcohol use. Denies any attempts at harming himself tonight. No other complaints. PFSH Past Medical History Cancer: No Cardiovascular Problems: No Diabetes: No Diminished Hearing: No Endocrine: No Genitourinary: No Headaches: No Immune Disorder: No Musculoskeletal: No Neurologic: No Psychiatric: Yes (Hx of treatment for depression) Reproductive: No Respiratory: No Immunizations Current: Yes Seizures: No Past Surgical History Oral Surgery: Yes (fx jaw) Social History Alcohol Use: Yes Tobacco Use: Yes (/2 ppd) Substance Use: Yes Allergies-Medications (Allergen,Severity, Reaction): Coded Allergies: No Known Allergies (Unverified , 06/02/16) Reported Meds & Prescriptions Reported Meds & Active Scripts Active Neurontin (Gabapentin) 300 Mg Cap 300 Mg PO TID 15 Days Escitalopram (Escitalopram Oxalate) 10 Mg Tab 10 Mg PO DAILY 15 Days Review of Systems Except as stated in HPI: all other systems reviewed are Neg Physical Exam Narrative GENERAL: Well-developed well-nourished male in no acute distress SKIN: Warm and dry. HEAD: Atraumatic. Normocephalic. EYES: Pupils equal and round. No scleral icterus. No injection or drainage. ENT: No nasal bleeding or discharge. Mucous membranes pink and moist. NECK: Trachea midline. No JVD. CARDIOVASCULAR: Regular rate and rhythm. No murmur appreciated. RESPIRATORY: No accessory muscle use. Clear to auscultation. Breath sounds equal bilaterally. Gastrointestinal: Patient declined examination. NEUROLOGICAL: Awake and alert. No obvious cranial nerve deficits. Motor grossly within normal limits. Normal speech. PSYCHIATRIC: Depressed mood; insight and judgment normal. MDM Medical Decision Making Medical Screen Exam Complete: Yes Emergency Medical Condition: Yes Medical Record Reviewed: Yes Differential Diagnosis Homelessness, malingering, major depressive disorder, substance abuse disorder, acute psychosis, bipolar disorder Narrative Course 35 year old male who presents under Cope act after being seen at [facility] and medically cleared there. I reviewed his lab work from [facility]. His AST was 83, ALT 125, blood alcohol level 181, negative drug screen, Tylenol and salicylate within normal limits. Mental health screening discussed with the patient. Psychiatric screen ordered. The patient is medically cleared for psychiatric disposition. Diagnosis Primary Impression: Depression Qualified Code: F32.9 - Depression, unspecified depression type Additional Impression: Homelessness Perry Rashid Jun 08, 2016 04:27
[2016-06-08] MEDS ORDERED: LORazepam 1 MG TAB PO PRN (08:15)
[2016-06-08] MEDS ORDERED: FLUMAZENIL 0.5 MG/5 ML VIAL IV PUSH PRN (08:15)
[2016-06-08] MEDS ORDERED: LORazepam 2 MG TAB PO PRN (08:15)
[2016-06-08] MEDS ORDERED: LORazepam 2 MG/ML VIAL IM PRN ×4 (08:15)
--- NOTE | 2016-06-08 10:41 | MB ---
cc: KYE TATE MD DATE OF CONSULTATION 06/08/2016 PHYSICIAN REQUESTING CONSULTATION Emergency department REASON FOR CONSULTATION [facility] HISTORY OF PRESENT ILLNESS Mr. Carlos is a 35-year-old male with a history of alcohol use disorder and associated mood disorder as well as a strong suspicion of malingering for long-term who presents in transfer from [facility] under a [facility]. The patient was just discharged from the inpatient psychiatric unit here at [facility] yesterday and apparently went out and became intoxicated with alcohol and presented back to [facility] claiming suicidal ideation. He was placed under a [facility] and transferred here. Electronic medical record reviewed. Records from [facility] reviewed. The patient seen and examined. Chart reviewed. Case discussed with nursing staff. On my examination this morning, the patient is clinically sober. He says that he "wanted to get out early" of the hospital. He now says that last night he was not "100% suicidal." This morning he appears fairly euthymic and does not describe any depressive or hypomanic/manic symptoms. He does not describe any current suicidal ideation, but manipulatively threatens the same if he is discharged. He denies any audiovisual hallucinations and I can elicit no delusional beliefs. No hypomanic or manic symptoms. He says that he had two or three beers last night prior to going into the outside hospital, but when asked if he thinks that he has an alcohol problem, he says "no, not at all." I obtained the patient's past psychiatric, family, chemical dependency and social history on my history and physical examination from June 05 of this year under visit number [id number], and these data are essentially unchanged today. PAST MEDICAL HISTORY See electronic medical record. REVIEW OF SYSTEMS No reported withdrawal symptoms noted. No headache. No vision or hearing changes, no chest pain, no shortness of breath, no bowel or bladder issues. No other somatic complaints. PHYSICAL EXAMINATION VITAL SIGNS: Temperature was not obtained, pulse is 89, respirations 18, blood pressure 124/73, pulse oximetry 98% on room air. A physical examination was completed in the emergency room by the ER staff and the patient was medically cleared. On my examination today, the patient appears to be in no acute physical distress. No abnormal motor movements noted. No signs of withdrawal noted. LABORATORY Reviewed. Laboratories were obtained at an outside hospital. Most significantly, the patient's alcohol level was elevated at 181. He continues to have a mild transaminitis. MENTAL STATUS EXAM The patient is in hospital gown. He is somewhat disheveled, but maintaining basic hygiene. He is awake and alert and oriented x3. No abnormal motor movements noted. Speech is within normal limits for rate, tone and volume. Mood is reportedly somewhat depressed, but affect seems fairly full and reactive and inconsistent with stated mood. Thought process linear. No loosening of associations. No evident delusions. Threatened suicide in the discharge situation as noted above, but no current suicidal or homicidal ideation. Insight and judgment are poor. ASSESSMENT/PLAN 1. Alcohol dependence, F10.20 2. Malingering for long-term Z76.5. This is a 35-year-old male with psychiatric history as detailed above who presents under a [facility] ACT in transfer from [facility]. The patient was just discharged from the inpatient psychiatric unit here less than 24 hours ago. He apparently went out from the hospital became intoxicated and represented to [facility] claiming suicidal ideation. The patient continues to voice some conditional suicidal ideation and I suspect that this represents malingering for long-term as he is presently homeless. The larger issue here, however, seems to be his alcohol use which has been present in the last two of his presentation here and seems to be an ongoing issue for the patient. His insight into this is poor. Inasmuch as this likely represents his greatest risk factor for self-harm, I think it makes the most sense to focus our treatment on the alcohol use issues. Given that his insight is so poor, I think it is necessary to initiate a physician certificate for emergency admission to an addiction receiving facility. I have lifted the [facility] in order to initiate a physician certificate and have placed this on the chart. I will initiate a CIWA scale with Ativan for the management of any withdrawal. The patient will be retained in the [facility] under the physician certificate until the patient can be transferred to the addiction receiving facility. Case discussed with nurse. Thank you very much for this consultation. Kye Tate DC/AFIA /8:18 AM /10:23 AM ROXANN
[2016-06-08 15:00] VITALS: BP 120/59; PULSE 52
[2016-06-08 22:19] VITALS: BP 120/60; PULSE 48; RESP 18; O2SAT 97
[2016-06-09 02:32] VITALS: BP 109/57; PULSE 52; RESP 18; O2SAT 96
[2016-06-09 06:13] VITALS: BP 111/66; PULSE 50; RESP 17; O2SAT 97
== END 2016-06-09 09:16 ==
LOC: NEPA 03:58 → NEPJ 06-09 09:16
DX: F32.9 Major depressive disorder, single episode, unspecified (principal); F10.20 Alcohol dependence, uncomplicated; Z76.5 Malingerer [conscious simulation]; Z59.0 Homelessness; F17.200 Nicotine dependence, unspecified, uncomplicated; Z98.890 Other specified postprocedural states; Z86.59 Personal history of other mental and behavioral disorders
CPT/HCPCS: 99284